=== PATIENT | male | born 2000 | race African-American/Black ===

== ENCOUNTER 2023-12-30 10:59 | Emergency (ER) | payer BC ==
[~2023-12-30] VITALS: Ht 170.2 cm; Wt 132.0 kg
[2023-12-30 11:19] VITALS: O2SAT 98
[2023-12-30 12:50] VITALS: BP 150/97; PULSE 94; RESP 13; TEMP 98.2
== END 2023-12-30 12:55 | disposition home or self-care (01) ==
LOC: ER 12:36
DX: S60.031A Contusion of right middle finger without damage to nail, initial encounter (principal); I10 Essential (primary) hypertension; X58.XXXA Exposure to other specified factors, initial encounter; Y93.89 Activity, other specified; Y92.89 Other specified places as the place of occurrence of the external cause; Y99.8 Other external cause status
CPT/HCPCS: 73140; 99283